=== PATIENT | female | born 1965 | race Caucasian/White ===

== ENCOUNTER 2019-03-09 13:39 | Emergency (ER) | payer OTHER ==
[2019-03-09 14:33] LABS: Urine Blood NEGATIVE (NEG); Urine Glucose NEGATIVE (NEG); Urine Protein NEGATIVE (NEG); Urine Specific Gravity 1.015 (1.005-1.030)
[2019-03-09 14:38] LABS: Urine Bacteria <20 /HPF (<20); Urine Culture Reflex Order NOT NEEDED; Urine RBC <5 /HPF (NONE SEEN)
[2019-03-09 15:16] LABS: Absolute Lymphocytes (CBC) 2.3 K/uL (0.7-4.9); Basophils % 0.7 % (0-1.3); Hematocrit 40.6 % (36.0-45.0); MPV 11.8 fL (7.6-11.3); RBC Red Blood Cell Count 4.71 M/uL (3.86-4.86)
[2019-03-09 15:21] LABS: ALT/SGPT 28 U/L (12-78); AST/SGOT 18 U/L (15-37); Albumin 3.7 g/dL (3.4-5.0); Alkaline Phosphatase 83 U/L (45-117); BUN Blood Urea Nitrogen 21 mg/dL (7-18); Bicarbonate 27 mmol/L (21-32); Bilirubin Direct < 0.1 mg/dL (0-0.2); Bilirubin Total 0.2 mg/dL (0.2-1.0); Glucose Level 83 mg/dL (74-106); Lipase 114 U/L (73-393); Potassium 3.8 mmol/L (3.5-5.1); Protein, Total 6.9 g/dL (6.4-8.2); Sodium Level 141 mmol/L (136-145)
--- NOTE | 2019-03-09 15:47 | RAD REPORT ---
EXAM DESCRIPTION: CTAbdomen Pelvis W Contrast - 03/09/2019 3:35 pm CLINICAL HISTORY: Abdominal pain. RLQ abd pain COMPARISON: No comparisons TECHNIQUE: Biphasic CT imaging of the abdomen and pelvis was performed with 100 ml non-ionic IV cont rast. All CT scans are performed using dose optimization technique as appropriate and may include automated exposure control or mA/KV adjustment according to patient size. FINDINGS: The lung bases are clear. The liver, spleen, pancreas, adrenal glands and kidneys are within normal limits. No bowel obstruction, free air, free fluid or abscess. Sigmoid diverticulosis without diverticulitis. The appendix is normal. No evidence of significant lymphadenopathy. No suspicious bony findings. IMPRESSION: No acute intra-abdominal or pelvic finding. Sigmoid diverticulosis without diverticulitis.
--- NOTE | 2019-03-09 15:56 | EDPHYS ---
Physician Documentation [facility] Name: Mahogany Ackerman Age: 53 yrs Sex: Female : 1965 Arrival Date: 03/09/2019 Time: 13:43 Bed 13 Private MD: ED Physician Art Alonso HPI: 03/09 14:00 This 53 yrs old Female presents to ER via Ambulatory with complaints of rn Abdominal Pain, Back Pain. 14:01 The patient presents with abdominal pain right lower quadrant. rn 14:01 Onset: The symptoms/episode began/occurred 2 day(s) ago. The symptoms radiate to back. rn Associated signs and symptoms: Pertinent positives: dysuria, Pertinent negatives: blood in stools, chest pain, constipation, diarrhea, fever, nausea, vomiting, vomiting blood. The symptoms are described as achy, intermittent. Modifying factors: The symptoms are alleviated by nothing, the symptoms are aggravated by touching the area. Severity of pain: At its worst the pain was mild in the emergency department the pain is unchanged. The patient has not experienced similar symptoms in the past. Reports told to come here from urgent care after presented with 2 days of RLQ pain and back pain. Reports single episode of dysuria when starting stream. No fever. No chest pain/vomiting/diarrhea. Good appetite. . 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 - Social history:: Smoking status: Patient/guardian denies using tobacco. - Ebola Screening: : No symptoms or risks identified at this time. - Family history:: not pertinent. - Hospitalizations: : No recent hospitalization is reported. ROS: 14:01 Constitutional: Negative for fever, chills, and weight loss, Eyes: Negative for injury, rn pain, redness, and discharge, Neck: Negative for injury, pain, and swelling, Cardiovascular: Negative for chest pain, palpitations, and edema, Respiratory: Negative for shortness of breath, cough, wheezing, and pleuritic chest pain, Abdomen/GI: Negative for nausea, vomiting, diarrhea, and constipation, Back: Negative for injury MS/Extremity: Negative for injury and deformity, Skin: Negative for injury, rash, and discoloration, Neuro: Negative for headache, weakness, numbness, tingling, and seizure. Exam: 14:01 Constitutional: This is a well developed, well nourished patient who is awake, alert, rn and in no acute distress. Ambulatory to room without difficulty or assistance. Head/Face: Normocephalic, atraumatic. ENT: MMM Cardiovascular: Regular rate and rhythm. No pulse deficits. Respiratory: No increased work of breathing, no retractions or nasal flaring. Abdomen/GI: soft, mild RLQ tenderness, no rebound MS/ Extremity: Pulses equal, no cyanosis. Neuro: Awake and alert, GCS 15, Motor strength 5/5 in all extremities. Sensory grossly intact. Cerebellar exam normal. Normal gait. Vital Signs: 13:46 BP 158 / 89; Pulse 74; Resp 16; Temp 97.8; Pulse Ox 100% on R/A; Weight 72.57 kg; hb Height 5 ft. 4 in. (162.56 cm); Pain 2/10; 14:15 BP 138 / 76; Pulse 60; Resp 18; Pulse Ox 99% on R/A; wh 15:40 BP 157 / 73; Pulse 66; Resp 18; Temp 98.2(O); Pulse Ox 100% ; mh5 13:46 Body Mass Index 27.46 (72.57 kg, 162.56 cm) hb MDM: 13:48 Patient medically screened. rn 15:53 Differential diagnosis: appendicitis, diverticulitis, gastritis, non-specific abd pain, rn pancreatitis, Pyelonephritis, Ureterolithiasis, urinary tract infection. Data reviewed: vital signs, nurses notes, lab test result(s), radiologic studies, CT scan, and as a result, I will discharge patient. Counseling: I had a detailed discussion with the patient and/or guardian regarding: the historical points, exam findings, and any diagnostic results supporting the discharge/admit diagnosis, lab results, radiology results, the need for outpatient follow up, to return to the emergency department if symptoms worsen or persist or if there are any questions or concerns that arise at home. Special discussion: Based on the patient's Hx, exam, and Dx evaluation, there is no indication for emergent surgery or inpatient Tx. It is understood by the patient/guardian that if the Sx's persist or worsen they need to return immediately for re-evaluation. I discussed with the patient/guardian in detail that at this point there is no indication for admission to the hospital. It is understood, however, that if the symptoms persist or worsen the patient needs to return immediately for re-evaluation. ED course: UA negative, ct abdomen neg for acute findings, will dc home with pcp f/u, return precautions . 03/09 14:00 Order name: Basic Metabolic Panel; Complete Time: 15:22 rn 03/09 14:00 Order name: CBC with Diff rn 03/09 14:00 Order name: Hepatic Function; Complete Time: 15:22 rn 03/09 14:00 Order name: Lipase; Complete Time: 15:22 rn 03/09 14:00 Order name: Urine Microscopic Only; Complete Time: 14:39 rn 03/09 14:00 Order name: IV Saline Lock; Complete Time: 14:28 rn 03/09 14:00 Order name: Labs collected and sent; Complete Time: 14:28 rn 03/09 14:00 Order name: Urine Dipstick-Ancillary (obtain specimen); Complete Time: 14:24 rn 03/09 14:00 Order name: Urine Culture rn 03/09 14:00 Order name: CT Abd/Pelvis - IV Contrast Only; Complete Time: 15:52 rn 03/09 14:21 Order name: Urine Dipstick--Ancillary (enter results); Complete Time: 14:39 gm 03/09 14:21 Order name: Urine --Ancillary (enter results); Complete Time: 14:39 gm Administered Medications: No medications were administered Disposition: 03/09/19 15:55 Discharged to Home. Impression: Lower abdominal pain, unspecified. - Condition is Stable. - Discharge Instructions: Abdominal Pain, Adult, Pain Without a Known Cause. - Medication Reconciliation Form, Thank You Letter, Antibiotic Education, Prescription Opioid Use form. - Follow up: Private Physician; When: As needed; Reason: Recheck today's complaints, Re-evaluation by your physician. - Problem is new. - Symptoms have improved. Signatures: Dispatcher [employer] Jahaira Dsouza RN RN sv Nieto, Roman, MD MD rn Baxter, Heather, RN RN hb Corrections: (The following items were deleted from the chart) 14:51 14:02 Creatinine for Radiology+C.LAB.BRZ ordered. EDND EDMS 16:16 15:55 03/09/2019 15:55 Discharged to Home. Impression: Lower abdominal pain, sv unspecified. Condition is Stable. Forms are Medication Reconciliation Form, Thank You Letter, Antibiotic Education, Prescription Opioid Use. Follow up: Private Physician; When: As needed; Reason: Recheck today's complaints, Re-evaluation by your physician. Problem is new. Symptoms have improved. rn
--- NOTE | 2019-03-09 15:56 | ER ---
Nurse's Notes [facility] Name: Mahogany Ackerman Age: 53 yrs Sex: Female : 1965 Arrival Date: 03/09/2019 Time: 13:43 Bed 13 Private MD: Diagnosis: Lower abdominal pain, unspecified Presentation: 03/09 13:45 Presenting complaint: RLQ and low back pain x 2 days. Denies N/V/D/fever. Seen at urgent care today, urine dip negative, instructed to come to ED. Transition of care: patient was not received from another setting of care. Onset of symptoms was March 08, 2019. Risk Assessment: Do you want to hurt yourself or someone else? Patient reports no desire to harm self or others. Initial Sepsis Screen: Does the patient meet any 2 criteria? No. Patient's initial sepsis screen is negative. Does the patient have a suspected source of infection? No. Patient's initial sepsis screen is negative. Care prior to arrival: None. 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 - Social history:: Smoking status: Patient/guardian denies using tobacco. - Ebola Screening: : No symptoms or risks identified at this time. - Family history:: not pertinent. - Hospitalizations: : No recent hospitalization is reported. Screenin:29 Abuse screen: Denies threats or abuse. Denies injuries from another. Nutritional wh screening: No deficits noted. Tuberculosis screening: No symptoms or risk factors identified. Fall Risk None identified. Assessment: 14:29 General: Appears in no apparent distress. Behavior is calm, cooperative, appropriate wh for age. Pain: Complains of pain in groin and right femoral area Pain radiates to right lower back Pain currently is 2 out of 10 on a pain scale. Pain began 1 day ago. Neuro: Level of Consciousness is awake, alert, obeys commands. Cardiovascular: Capillary refill < 3 seconds. Cardiovascular: Heart tones S1 S2. Respiratory: Airway is patent Respiratory effort is even, unlabored, Respiratory pattern is regular, symmetrical. Respiratory: Breath sounds are clear bilaterally. GI: Abdomen is flat, non-distended, Bowel sounds present X 4 quads. Abd is soft and non tender X 4 quads. : No signs and/or symptoms were reported regarding the genitourinary system. EENT: No signs and/or symptoms were reported regarding the EENT system. Derm: Skin is intact, is healthy with good turgor, Skin is pink, warm \T\ dry. normal. Musculoskeletal: Circulation, motion, and sensation intact. Vital Signs: 13:46 BP 158 / 89; Pulse 74; Resp 16; Temp 97.8; Pulse Ox 100% on R/A; Weight 72.57 kg; hb Height 5 ft. 4 in. (162.56 cm); Pain 2/10; 14:15 BP 138 / 76; Pulse 60; Resp 18; Pulse Ox 99% on R/A; wh 15:40 BP 157 / 73; Pulse 66; Resp 18; Temp 98.2(O); Pulse Ox 100% ; mh5 13:46 Body Mass Index 27.46 (72.57 kg, 162.56 cm) hb ED Course: 13:43 Patient arrived in ED. mr 13:46 Triage completed. hb 13:48 Art Alonso MD is Attending Physician. rn 13:48 Arm band placed on. hb 13:49 Davon Saenz is Primary Nurse. wh 14:23 Patient has correct armband on for positive identification. Placed in gown. Bed in low mh5 position. Call light in reach. Warm blanket given. Pulse ox on. NIBP on. 14:23 Urine collected: clean catch specimen, cloudy. mh5 14:24 Urine --Ancillary (enter results) Sent. mh5 14:24 Urine Dipstick--Ancillary (enter results) Sent. mh5 14:24 Urine Culture Sent. mh5 14:24 Urine Microscopic Only Sent. mh5 14:31 Missed attempt(s): 22 gauge in right antecubital area. Bleeding controlled, band aid wh applied, catheter tip intact. 14:36 Missed attempt(s): 22 gauge in left antecubital area. mh5 14:40 Inserted saline lock: 22 gauge in right forearm, using aseptic technique. iw 14:47 Primary Nurse role handed off by Davon Saenz 14:47 Jahaira Taylor, RN is Primary Nurse. sv 14:47 Report received from Davon VELASQUEZ. 14:48 Radiology exam delayed due to lab results not completed at this time. (BUN/Creatinine). 2 15:35 CT Abd/Pelvis - IV Contrast Only In Process Unspecified. EDMS 15:35 CT completed. Patient tolerated procedure well. Patient moved to CT. Patient moved back ms from CT. 16:15 No provider procedures requiring assistance completed. IV discontinued, intact, sv bleeding controlled, No redness/swelling at site. Pressure dressing applied. Administered Medications: No medications were administered Outcome: 15:55 Discharge ordered by MD. rn 16:15 Discharged to home ambulatory, with family. sv 16:15 Condition: stable 16:15 Discharge instructions given to patient, Instructed on discharge instructions, follow up and referral plans. Demonstrated understanding of instructions, follow-up care. 16:16 Patient left the ED. sv Signatures: Dispatcher [employer] EDGA Jahaira Taylor, Sarah Carter RN, Simona, RN Art Platt MD MD rn Baxter, Heather, RN RN hb Jordan, Brittany Ding [facility] Mari Restrepo [facility] Davon Saenz Corrections: (The following items were deleted from the chart) 15:46 15:40 BP 157 / 73; Pulse 66bpm; Resp 18bpm; Pulse Ox 100%; sv mh5
[2019-03-09 16:40] VITALS: BP 157/73; TEMP 98.2; O2SAT 100
[2019-03-09 21:52] LABS: Blood Morphology Comment NOT SEEN (NOT SEEN); Platelet Estimate ADEQ; Urine White Blood Cell Casts OK
== END 2019-03-09 16:16 | disposition home or self-care (01) ==
LOC: ER 13:39
DX: R10.31 Right lower quadrant pain (principal)
CPT/HCPCS: 87088; 85025; 87086; 80048; 36415; 81025; 80076; 83690; 74177; Q9967; 81003; 81015; 99284